=== PATIENT | female | born 1955 | race Caucasian/White ===

== ENCOUNTER 2016-12-28 19:31 | Emergency (ER) | payer OTHER ==
[~2016-12-28] VITALS: Ht 152.4 cm; Wt 77.0 kg
[~2016-12-28 19:31] MED LIST: ACYC800T57 PO; BEN50 PO; DEC4 PO; FAMO-18 PO; PRED20TA PO; PRED50TA PO
[2016-12-28 19:37] VITALS: Ht 152.4 cm; Wt 77.0 kg
[2016-12-28] MEDS ORDERED: KETOROLAC 30 MG INJ IM STA (21:38)
--- NOTE | 2016-12-28 22:33 | RADRPT ---
PROCEDURE: Left humerus x-ray CLINICAL INDICATION: shoulder pain TECHNIQUE: AP and lateral views of the humerus were obtained. COMPARISON: None FINDINGS: There is normal mineralization. No acute fracture or dislocation is seen. There is no significant soft tissue swelling. The visualized joints demonstrate acromioclavicular osteoarthrosis. The glenohumeral and elbow joints are unremarkable RPTAT:HJJR IMPRESSION: 1. Acromioclavicular osteoarthrosis of the left shoulder. 2. Normal x-ray of the left humerus. Physician Basil Date Time Electronically viewed and signed by Physician Basil on 12/28/2016 22:33 JR/
--- NOTE | 2016-12-28 22:34 | RADRPT ---
PROCEDURE: XR shoulder. CLINICAL INDICATION: Pain TECHNIQUE: Two views of the left shoulder were performed. COMPARISON: Left humerus 12/28/2016 FINDINGS: There is normal mineralization and alignment. No fracture or osseous lesion is identified. Osteoarth rosis of the acromioclavicular joint is moderate with small spurs arising from the inferior aspect o f the articulation. The glenohumeral joint appears intact. The soft tissues are unremarkable. RPTAT:HJJR IMPRESSION: Moderate acromioclavicular osteoarthrosis of the left shoulder. Physician Basil Date Time Electronically viewed and signed by Physician Basil on 12/28/2016 22:34 /
[2016-12-28] MEDS ORDERED: IBUP400T22 PO (23:14)
--- NOTE | 2016-12-28 23:21 | ERD ---
ER Documentation Chief Complaint Date/Time DATE: 12/28/16 TIME: 23:15 Chief Complaint LT ARM PAIN NO TRAUMA X3 DAYS, NO CP/SOB OR NUMBNESS HPI Patient is a 61-year-old female with past medical history of diabetes, hyperlipidemia who presents to the emergency department with left upper arm pain 3 days she denies any falls or trauma. Patient states the pain is localized to left upper shoulder. Patient denies any radiation of the pain. Patient denies any chest pain, shortness of breath, diaphoresis dizziness or loss of consciousness. Patient states she has been taking Tylenol, which does temporarily alleviate her pain. 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 She denies any numbness or tingling of her hands. Patient denies any falls or trauma. ROS All systems reviewed and are negative except as per history of present illness. Medications Home Meds Active Scripts Ibuprofen* (Motrin*) 400 Mg Tab, 400 MG PO Q6, #30 TAB Prov:SUSANNA IRIZARRY PA-C 12/28/16 Prednisone* (Prednisone*) 20 Mg Tab, 60 MG PO DAILY for 5 Days, TAB Prov:DANY CHEUNG 08/20/16 Acyclovir* (Zovirax*) 800 Mg Tablet, 800 MG PO 5 TIMES DAILY for 7 Days, TAB Prov:DANY CHEUNG 08/20/16 Dexamethasone* (Decadron*) 4 Mg Tab, 4 MG PO BID, #4 TAB Prov:SANDRA BRADEN PA-C 05/08/16 Prednisone* (Prednisone*) 50 Mg Tablet, 50 MG PO DAILY, #5 TAB Prov:SHERWIN JONES NP 05/06/16 Famotidine* (Pepcid*) 20 Mg Tablet, 20 MG PO BID, #20 TAB Prov:SHERWIN JONES NP 05/06/16 Diphenhydramine Hcl* (Benadryl*) 50 Mg Cap, 50 MG PO Q6H Y for ITCHING/RASH, # 30 CAP Prov:SHERWIN JONES NP 05/06/16 Allergies Allergies: Coded Allergies: No Known Drug Allergies (Verified Allergy, Unknown, 05/06/16) PMhx/Soc Medical and Surgical Hx: pt denies Surgical Hx History of Surgery: No Anesthesia Reaction: No Hx Neurological Disorder: No Hx Respiratory Disorders: No Hx Cardiac Disorders: Yes (HTN, HIGH CHOLESTEROL) Hx Psychiatric Problems: No Hx Miscellaneous Medical Probl: No Hx Alcohol Use: No Hx Substance Use: No Hx Tobacco Use: No FmHx Family History: diabetes Physical Exam Vitals Vital Signs Date Time Temp Pulse Resp B/P Pulse Ox O2 Delivery O2 Flow Rate FiO2 12/28/16 23:28 74 16 142/70 96 Room Air 12/28/16 19:37 99.6 89 20 165/80 97 Physical Exam General: Well-developed, well-nourished female. Appears in no acute distress. Speaking in full sentences Head: Normocephalic, atraumatic. Eyes: Pupils are equally reactive bilaterally. EOMs grossly intact. No conjunctival erythema. ENT: Moist mucous membranes. Neck: Supple. No lymphadenopathy or thyromegaly. No meningeal signs. Lungs: Clear to auscultation bilaterally. No rhonchi, wheezing, rales or coarse breath sounds. Heart: Regular rate and rhythm. No murmurs, rubs or gallops. Extremities: No pedal edema, unilateral leg swelling. 5/5 strength in all extremities. Neurologic: Alert and oriented x3. Moving all four extremities. Normal speech. Steady gait. (-) Brudzinski sign- no flexion of the hips and knees noted with neck flexion. Left shoulder: No obvious deformity, erythema, ecchymosis or swelling. Skin intact. Decreased range of motion of the left shoulder secondary to pain. Tender to palpation of the anterior shoulder, proximal humerus. Nontender to palpation of the clavicle, distal humerus, elbow, forearm, wrist. . Sensation intact to light touch. Neurovascularly intact. (Able to give thumbs up, make an ok sign, cross digits 2 and 3, thumb to pinky opposition. 2+ RP.) No snuffbox tenderness. Results 24 hrs Current Medications Medications (Trade) Dose Ordered Sig/Mindy Route PRN Reason Start Time Stop Time Status Last Admin Dose Admin Ketorolac Tromethamine (Toradol) 30 mg ONCE STAT IM 12/28/16 21:38 12/28/16 21:39 DC 12/28/16 21:54 Procedures/MDM ED COURSE: The patient was stable throughout ED course. I kept the patient and/or family informed of laboratory and diagnostic imaging results throughout the ED course. DIAGNOSTIC IMAGING: Read by radiologist. Patient: JERAD MAJOR : 1955 Age: 61 Sex: F MR #: [id number] DOS: 12/28/162141 Ordering MD: SUSANNA IRIZARRY PA-C Location: [facility] Room/Bed: PROCEDURE: Left humerus x-ray CLINICAL INDICATION: shoulder pain TECHNIQUE: AP and lateral views of the humerus were obtained. COMPARISON: None FINDINGS: There is normal mineralization. No acute fracture or dislocation is seen. There is no significant soft tissue swelling. The visualized joints demonstrate acromioclavicular osteoarthrosis. The glenohumeral and elbow joints are unremarkable RPTAT:HJJR IMPRESSION: 1. Acromioclavicular osteoarthrosis of the left shoulder. 2. Normal x-ray of the left humerus. Physician Basil Date Time Electronically viewed and signed by Physician Basil on 12/28/2016 22:33 JR/ CC: SUSANNA IRIZARRY PA-C DIAGNOSTIC IMAGING REPORT Patient: JERAD MAJOR : 1955 Age: 61 Sex: F MR #: [id number] DOS: 12/28/162137 Ordering MD: SUSANNA IRIZARRY PA-C Location: [facility] Room/Bed: PROCEDURE: XR shoulder. CLINICAL INDICATION: Pain TECHNIQUE: Two views of the left shoulder were performed. COMPARISON: Left humerus 12/28/2016 FINDINGS: There is normal mineralization and alignment. No fracture or osseous lesion is identified. Osteoarthrosis of the acromioclavicular joint is moderate with small spurs arising from the inferior aspect of the articulation. The glenohumeral joint appears intact. The soft tissues are unremarkable. RPTAT:HJJR IMPRESSION: Moderate acromioclavicular osteoarthrosis of the left shoulder. Physician Basil Date Time Electronically viewed and signed by Physician Basil on 12/28/2016 22:34 JR/ CC: SUSANNA IRIZARRY PA-C PROCEDURES: None. MEDICATIONS GIVEN: Toradol IM Patient tolerated medication well with no adverse reactions. Patient reported improvement in pain. MEDICAL DECISION MAKING: This is a 61-year-old female who presents with left upper arm pain 3 days. Patient denies any trauma or falls. 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 Patient denied any chest pain, shortness of breath, diaphoresis.. Vital signs were reviewed. Patient was afebrile. She was not hypoxic. X-ray imaging of the left shoulder and humerus showed Moderate acromioclavicular osteoarthrosis of the left shoulder. Given these findings, the patient's presentation is most consistent with osteoarthrosis of the left shoulder. I have a much lower clinical concern for ACS, dislocation, fracture, septic joint, lateral epicondylitis, medial epicondylitis, bursitis, osteomyelitis, or compartment syndrome. Unable to rule out any ligament or tendon injuries at this time. PRESCRIPTIONS: Ibuprofen DISCHARGE: At this time, patient is stable for discharge and outpatient management. Provided with a copy of all imaging studies obtained today. RICE therapy and ROM exercises were advised to avoid stiffness. I have instructed the patient to follow-up with his/her primary care physician in 1-2 days. I have discussed with the patient the possibility of needing to see an scalp specialist for further workup and imaging if the pain persists. I have instructed the patient to promptly return to the ER for any new or worsening symptoms including increased pain, swelling, redness, warmth or fever. The patient and/or family expressed understanding of and agreement with this plan. All questions were answered. Home care instructions were provided. Departure Diagnosis: Primary Impression: Osteoarthrosis Osteoarthritis location: shoulder Osteoarthritis type: unspecified Laterality: left Qualified Code: M19.012 - Osteoarthritis of left shoulder, unspecified osteoarthritis type Condition: Stable Patient Instructions: Osteoarthritis: Managing Pain Referrals: [facility] Additional Instructions: Call your primary care doctor TOMORROW for an appointment during the next 1-2 days.See the doctor sooner or return here if your condition worsens before your appointment time. Unable to rule out any tendon or ligament injuries at this time. Patient will need to follow-up with an scalp specialist and/or obtain MRI imaging for further management of her pain. Patient may also benefit from physical therapy. See primary care physician for referral. SUSANNA IRIZARRY PA-C Dec 28, 2016 23:21
[2016-12-28 23:28] VITALS: BP 142/70; PULSE 74; RESP 16
== END 2016-12-28 23:29 | disposition home or self-care (01) ==
LOC: FTE 19:31
DX: M19.012 Primary osteoarthritis, left shoulder (principal); I10 Essential (primary) hypertension
CPT/HCPCS: 73030; 73060; 96372; J1885; Z7502